=== PATIENT | male | born 1970 | race Caucasian/White ===

== ENCOUNTER 2018-10-26 10:47 | Emergency (ER) | payer SELFPAY ==
[2018-10-26 11:48] VITALS: BP 136/100
--- NOTE | 2018-10-26 12:32 | UC ---
Throat Pain/Nasal Khris HPI - HPI Summary HPI Summary: 48-year-old male comes in with a chief complaint of runny nose sinus pressure ears being plugged cough chest congestion. Patient's been sick on and off since September 06, 2018 with similar symptoms. Things get worse for a while then no get better. He has gotten some earwax out of his years has he's been using some [id number] eardrops. Does have some chest congestion that's not very bad today. The symptoms are worse today are the sinus pressure and green rhinorrhea. - History of Current Complaint Chief Complaint: UCRespiratory Stated Complaint: COUGH,CONGESTION Time Seen by Provider: 10/26/18 12:20 Pain Intensity: 0 - Allergies/Home Medications Allergies/Adverse Reactions: Allergies Allergy/AdvReac Type Severity Reaction Status Date / Time No Known Allergies Allergy Verified 10/26/18 11:45 Home Medications: Home Medications Doxylamine/Phenylep/Dm/Aspirin [[place] Day-Night Tab Eff] 1 each PO BID [History Confirmed 10/26/18] PMH/Surg Hx/FS Hx/Imm Hx Previously Healthy: Yes - Surgical History Surgical History: Yes Surgery Procedure, [facility], and Place[facility] - Family History Known Family History: Positive: Non-Contributory - Social History Alcohol Use: Weekly Substance Use Type: None Smoking Status (MU): Never Smoked Tobacco Review of Systems All Other Systems Reviewed And Are Negative: Yes Constitutional: Positive: Fatigue Skin: Positive: Negative Eyes: Positive: Negative ENT: Positive: Sore Throat, Ear Ache, Nasal Discharge, Sinus Congestion, Sinus Pain/Tenderness Respiratory: Positive: Cough Cardiovascular: Positive: Negative Gastrointestinal: Positive: Negative Motor: Positive: Negative Neurovascular: Positive: Negative Musculoskeletal: Positive: Negative Neurological: Positive: Negative Psychological: Positive: Negative Is Patient Immunocompromised?: No Physical Exam Triage Information Reviewed: Yes Appearance: No Pain Distress, Well-Nourished, Ill-Appearing - MILD Vital Signs: Initial Vital Signs Temp 98.6 F 10/26/18 11:44 Pulse 107 10/26/18 11:44 Resp 16 10/26/18 11:44 BP 136/100 10/26/18 11:44 Pulse Ox 97 10/26/18 11:44 Vital Signs Reviewed: Yes Eye Exam: Normal Eyes: Positive: Conjunctiva Clear ENT: Positive: Pharyngeal erythema, Nasal congestion, Nasal drainage, Other - B/ L CERUMEN IMPACTION Neck exam: Normal Neck: Positive: Supple Respiratory: Positive: No respiratory distress, No accessory muscle use, Rhonchi - OCCATIONAL SCATTERED Cardiovascular: Positive: Tachycardia Musculoskeletal Exam: Normal Musculoskeletal: Positive: Strength Intact, ROM Intact Neurological Exam: Normal Neurological: Positive: Alert, Muscle Tone Normal Psychological Exam: Normal Psychological: Positive: Age Appropriate Behavior Skin Exam: Normal Throat Pain/Nasal Course/Dx - Course Course Of Treatment: Bilateral ear irrigation by nursing was successful and removal of cerumen bilaterally. - Differential Dx/Diagnosis Provider Diagnosis: Impacted cerumen of both ears, Sinusitis, Bronchitis Discharge - Sign-Out/Discharge Documenting (check all that apply): Patient Departure All imaging exams completed and their final reports reviewed: No Studies - Discharge Plan Condition: Stable Disposition: HOME Prescriptions: Amoxicillin/Clavulanate TAB* [Augmentin TAB 875*] 875 mg PO BID #20 tab Patient Education Materials: Sinusitis (ED), Cerumen Impaction (ED) Referrals: [facility] [Outside] Additional Instructions: FOLLOW UP WITH YOUR DOCTOR IF NOT COMPLETELY IMPROVED. GET RECHECKED FOR ANY WORSENING OF YOUR CONDITION; SHORTNESS OF BREATH, YOU CONTINUE TO FEEL ILL OR QUESTIONS OR CONCERNS. - Billing Disposition and Condition Condition: STABLE Disposition: Home
== END 2018-10-26 13:10 | disposition home or self-care (01) ==
LOC: UCCORT 10:47
DX: J32.9 Chronic sinusitis, unspecified (principal); J40 Bronchitis, not specified as acute or chronic; H61.23 Impacted cerumen, bilateral
CPT/HCPCS: 99203; G0463